=== PATIENT | male | born 1975 | race Two or more races ===

== ENCOUNTER 2024-03-01 11:19 | Day surgery (SDC) | payer OTHER, SELFPAY ==
--- NOTE | 2024-02-29 14:53 | W.PM.DSUDISC ---
Date of service: 03/01/24 Discharge Plan Disposition Patient Disposition: Home Condition: Good Discharge Details Reason For Visit: screening colonoscopy Attending Provider: Osvaldo Werner Primary Care Provider: Kasandra Allen Home Meds and New Rx's Prescriptions: Continued melatonin 3 mg capsule 3 mg PO HS PRN lisinopril 10 mg tablet 10 mg PO DAILY hydroxyzine HCl 25 mg tablet 25 mg PO QHS ibuprofen [Advil] 200 mg tablet 600 mg PO BID PRN acetaminophen 325 mg capsule 325 mg PO ONCE PRN buprenorphine HCl 2 mg tablet, sublingual 4 mg sublingual DAILY Discharge Instructions Instructions: Hemorrhoids Additional Instructions: Tj was pleasure meeting you today, and I hope you are comfortable during the colonoscopy and that you make a quick recovery. You have a little bit of internal hemorrhoid, this is probably causing the symptoms that you notice. Increasing your dietary fiber as best she can, and [id number] treatments for hemorrhoids are generally my first-line recommendation for therapy. Otherwise, your colonoscopy is totally normal. Because of your family history, you should be screened with colonoscopies every 5 years. If you have any questions, please do not hesitate to get in touch with our office at any point. 1. If tolerated, consume a soft, low fiber diet for 1-2 days. 2. Do not drive, drink alcohol, operate machinery, make critical decisions, or do activities that require coordination or balance for 24 hours. 3. Because air was put into your colon during the procedure, expelling air from your rectum (passing gas or farting) is normal. 4. You may not have a bowel movement for 1-3 days because of the colonoscopy prep. This is normal. 5. Go directly to the emergency room if you notice any of the following: Develop chills (warm to touch), or if you have a thermometer and your temperature is above 101 Difficulty breathing or difficultly swallowing Persistent vomiting Severe abdominal pain, other than gas cramps Severe chest pain Black, tarry stools Any bleeding ? exceeding one tablespoon 6. Call your physician if the site where your intravenous was started becomes red, swollen, painful, and warm to touch. 7. Your physician has reviewed your pre-procedure medications. Please continue to take those medications as previously ordered. You will be given specific information/education regarding any changes to your medications before leaving. Activity:: Activity as Tolerated Diet:: As Tolerated Discharge Orders Discharge Orders: Discharge Order (Routine); Ordered 02/29/24 Ordered By: Osvaldo Werner DS: Diagnosis Discharge Diagnosis (1) Encounter for screening colonoscopy: Status: Acute Asessment and Plan: Negative screening colonoscopy; 5-year follow-up screening colonoscopy for family history
--- NOTE | 2024-02-29 14:55 | COLE_ITS ---
Date of service: 03/01/24 Time of Service: 13:48 Colonoscopy Report Date of procedure: 03/01/24 Pre-op diagnosis general: screening colonoscopy Post-op diagnosis procedure note: other (Internal hemorrhoids) Procedure: colonoscopy Surgeon: Osvaldo Werner Anesthesia Type: General:No Airway Estimated blood loss (mL): 0 Pathology: none sent Complications: None Disposition: same day Indications: Tj is a 48 year old man with a family history of colon cancer. He needs a screening colonoscopy Prep: Miralax/Dulcolax Procedure Start Time: : Procedure End Time: 13:33 Retraction Time: 6 Findings: Grade 1 internal hemorrhoids Procedure Description: After the induction of anesthesia, and with the patient in left lateral decubitus position, I began by performing an external anorectal exam.? Perineum and skin were normal, as was the anal verge.? There was no evidence of external hemorrhoids.? Next, I performed a digital rectal exam.? This felt normal.? Next, I advanced a colonoscope into the rectal vault.? I performed retroflexion.? There are grade 1 internal hemorrhoids.? Using insufflation, I then advanced the colonoscope beyond the rectal folds and into the sigmoid colon before advancing towards the cecum.? The quality of the prep was excellent.? The scope was noted to be in the cecum by identification of the ileocecal valve and appendiceal orifice.? I then began withdrawing the colonoscope using repeated irrigation as necessary for full evaluation of the colonic mucosa. I saw no signs of tumors, polyps, or any other worrisome pathology. ?Once the scope was withdrawn to the level of the rectum, great care was taken to examine portions of the rectal folds.? Finally, the scope was withdrawn and the patient was brought to the same-day surgery recovery unit as the anesthetic wore off. ?The findings and instructions were shared with the patient prior to discharge. [place] Bowel Prep [place] Bowel Prep Right Colon: 3 Left Colon: 3 Transverse Colon: 3 Total Score: 9
[2024-03-01 11:55] VITALS: BP 137/89; PULSE 76; RESP 18; TEMP 36.4; O2SAT 98
[2024-03-01] MEDS: Normal Saline Flush 10 ML SYR IV (12:34)
[2024-03-01 13:07] VITALS: BMI 33.5
--- NOTE | 2024-03-01 13:07 | W.ANESPRE ---
General Info Date of Service Date Performed: 03/01/24 Height: 5 ft 7 in Weight: 97.2 kg Body Mass Index (BMI): 33.5 Surgical Procedure: Operation Date: 03/01/24 12:05 Proposed Procedure Side Surgeon p Kennedi Werner MD Meds Allergies and Home Medications Allergies Allergy/AdvReac Type Severity Reaction Status Date / Time No Known Allergies Allergy Verified 03/01/24 12:03 Home Medication ?Medication ?Instructions ?Recorded hydroxyzine HCl 25 mg tablet 25 mg PO QHS 11/09/23 lisinopril 10 mg tablet 10 mg PO DAILY 11/09/23 melatonin 3 mg capsule 3 mg PO HS PRN 11/09/23 acetaminophen 325 mg capsule 325 mg PO ONCE PRN 02/28/24 ibuprofen 200 mg tablet (Advil) 600 mg PO BID PRN 02/28/24 buprenorphine HCl 2 mg sublingual 4 mg sublingual DAILY 03/01/24 tablet Current Visit Medications: Current Medications Generic Name Dose Route Start Last Admin Trade Name Freq PRN Reason Stop Dose Admin IV Miscellaneous Supplies 1 each 03/01/24 06:00 Iv Access IV 03/01/24 23:59 DIRECTED KENDALL Ondansetron HCl 4 mg 02/29/24 14:56 Ondansetron 4 Mg/2 Ml Vial IVP 03/30/24 14:55 Q4H PRN PRN Nausea / Vomiting Sodium Chloride 0 ml 03/01/24 06:00 03/01/24 12:34 Normal Saline Flush 10 Ml Syr IV 03/01/24 23:59 10 ml PRN PRN Administration Sodium Chloride 0 ml 03/01/24 06:00 Normal Saline 10 Ml Vial IJ 03/01/24 23:59 DIRECTED PRN Sterile Water 0 ml 03/01/24 06:00 Water,Injection,Sterile 10 Ml Vial IJ 03/01/24 23:59 DIRECTED PRN PFSH Active Problems Active Problems: Problem Status Onset Code Blood in stool Acute K92.1 Medical History Medical History Insomnia Anxiety HTN (hypertension) Family history of colon cancer in father Age 57 Tobacco Smoking/Tobacco Use Status: Former Tobacco Use Alcohol Alcohol Intake: former Substance Use Substance use: Current Sobriety Vital Signs and Lab Results Vital Signs Most Recent Vital Signs in EMR: Most Recent Vital Signs Temp Pulse Resp BP Pulse Ox 36.4 C L 76 18 137/89 98 03/01/24 11:55 03/01/24 11:55 03/01/24 11:55 03/01/24 11:55 03/01/24 11:55 Lab Results Blood Type / Crossmatch: No Data to Display Complete Blood Count: No Data to Display Complete Metabolic Panel: No Data to Display Liver Function Panel: No Data to Display Coagulation Panel: No Data to Display Cardiac Panel: No Data to Display Arterial Blood Gas: No Data to Display Venous Blood Gas: No Data to Display Pancreas Panel: No Data to Display Thyroid Panel: No Data to Display Infectious Disease: No Data to Display Blood Cultures: No Data to Display Toxicology Panel: No Data to Display Anesthesia Assessment and Plan Anesthesia History Personal History: Unknown Anesthesia History Family History: Family History Unknown Exercise Tolerance Exercise Tolerance: Metabolic Equivalents>4 Pertinent Negatives Pertinent Negatives: No Symptoms of GERD Cardiac & Pulmonary Exam Cardiac Exam: Normal S1/S2 Heart Sounds Pulmonary Exam: Clear Bilateral Breath Sounds Implantable Cardiac Device Does patient have a Pacemaker or an ICD?: No Airway Exam Known Difficult Airway: No Mallampati Class: 3 Mouth Opening: Normal (> 3cm) Thyromental Distance: Greater than 3 cm Neck Range of Motion: Full ROM Neck Circumference: Normal Teeth Condition: Normal Dentition ASA Classification ASA Score: ASA 2 Emergency Case?: No NPO Status NPO Status: NPO Clears >2 hours, Solids >8 hours Anesthesia Plan Resuscitation Status: Full Code Anesthesia Technique: General Anesthesia Airway Planned: Natural Airway Monitors Used: Standard Monitors
[2024-03-01 13:46] VITALS: BP 140/99; PULSE 88; RESP 18; TEMP 36.5; O2SAT 92
--- NOTE | 2024-03-01 14:14 | W.ANESPOSTOP ---
Postoperative Evaluation Date, Time and Location Date Performed: 03/01/24 Time Performed: 14:15 Patient Location: Day Surgery Unit Vital Signs Most Recent Imported Vital Signs: Most Recent Vital Signs Temp Pulse Resp BP Pulse Ox 36.5 C 88 18 140/99 H 92 03/01/24 13:46 03/01/24 13:46 03/01/24 13:46 03/01/24 13:46 03/01/24 13:46 Pain Score Most Recent Pain Score: Most Recent Pain Score Pain Level 0 03/01/24 13:46 Assessment Mental Status: Awake (Alert & Oriented to Patient Baseline) Airway and Respiratory Function: Patent airway with normal (patient baseline) respiratory exam Cardiovascular Function: Hemodynamically Stable Hydration Status: Adequately Hydrated Nausea & Vomiting: No Nausea or Vomiting Pain: Pt. Denies Any Pain Peripheral Nerve Block: Patient did not receive a nerve block
[2024-03-01 14:15] VITALS: BP 131/93; PULSE 88; RESP 20; TEMP 36.7; O2SAT 99
== END 2024-03-01 14:25 | disposition home or self-care (01) ==
LOC: SUR 11:19
PROVIDERS: PCP Nurse Practitioner Family; Visit Provider Surgery
PROC: 0DJD8ZZ Inspection of Lower Intestinal Tract, Via Natural or Artificial Opening Endoscopic (ICD-10-PCS; CPT 45378; principal; 2024-03-01 12:00)
DX: Z12.11 Encounter for screening for malignant neoplasm of colon (principal); K64.0 First degree hemorrhoids; Z80.0 Family history of malignant neoplasm of digestive organs
CPT/HCPCS: 45378; J2704